=== PATIENT | female | born 1975 | race Caucasian/White ===

== ENCOUNTER → 2017-07-09 14:06 | Outpatient (CLI) | payer OTHER, SELFPAY ==
[2017-07-16 13:52] LABS: HPV Reflexed? NOT INDICATED
== END ==
PROVIDERS: Visit Provider Obstetrics & Gynecology
DX: Z12.4 Encounter for screening for malignant neoplasm of cervix (principal)
CPT/HCPCS: 88175; G0145

== ENCOUNTER → 2017-09-27 08:40 | Outpatient (CLI) | payer OTHER, SELFPAY ==
--- NOTE | 2017-09-27 08:45 | BI_ITS ---
MAMMOGRAPHY - BILATERAL SCREENING REASON FOR EXAM: Female, 42 years old. Routine annual screening examination. PERTINENT HISTORY: Mother with breast cancer. Aunt with breast cancer. Prior right ultrasound-guided breast biopsy. TECHNIQUE: Digital bilateral breast malina (3D mammographic acquisition) in the CC and MLO projections. 2-D mediolateral oblique (MLO) and craniocaudad (CC) views of both breasts were obtained. CAD: Full Field Digital Mammography with Computer Added Detection was performed. COMPARISON: Comparison is made with prior study dated August 31, 2016 and August 12, 2015. FINDINGS: Breast Composition: The breasts are heterogeneously dense, which may obscure small masses. There are no dominant masses or suspicious calcifications. A tissue clip marker is once again seen in a nodular density measuring 1.2 cm in the axillary region of the right breast. No other significant abnormalities are identified. There has been no significant change since the prior study. BI/SCREENING MAMM (CAD), BILAT IMPRESSION: Stable bilateral screening mammogram. Yearly follow-up mammogram recommended. (A) ASSESSMENT CATEGORY: BIRADS Category 2: Benign. A letter regarding these results will be sent to the patient by the facility within 30 days. Approximately 10% of breast cancers are not detected by mammography. A normal mammogram should not delay biopsy of a clinically suspicious abnormality. [id number] Electronically Signed: Jesus Alberto Austin MD at 9:51 EDT Tel [phone], Service support ,
== END ==
PROVIDERS: Visit Provider Obstetrics & Gynecology
DX: Z12.31 Encounter for screening mammogram for malignant neoplasm of breast (principal)
CPT/HCPCS: 77063; 77067

== ENCOUNTER → 2018-07-12 14:04 | Outpatient (CLI) | payer OTHER, SELFPAY ==
[2018-07-15 13:32] LABS: HPV Reflexed? NOT INDICATED
== END ==
PROVIDERS: Visit Provider Obstetrics & Gynecology
DX: Z12.4 Encounter for screening for malignant neoplasm of cervix (principal)
CPT/HCPCS: 88175; G0145

== ENCOUNTER → 2018-10-10 14:31 | Outpatient (CLI) | payer OTHER, SELFPAY ==
--- NOTE | 2018-10-10 14:34 | BI_ITS ---
MAMMOGRAPHY - BILATERAL SCREENING 3-D TOMOSYNTHESIS REASON FOR EXAM: Female, 43 years old. Bilateral Screening 3-D tomosynthesis PERTINENT HISTORY: Mother with breast cancer.. TECHNIQUE: 2-D mammograms and 3-D Tomosynthesis of the breast (s) were performed. CAD was performed. COMPARISON: None. FINDINGS: The breast composition is heterogeneously dense that can obscure small breast masses. Scattered benign calcifications are seen. No dense spiculated masses or suspicious microcalcifications are identified. No architectural distortion is identified. There is no skin thickening or retraction. There has been no significant change since the prior study. BI/SCREEN MAMM (CAD) W/CICI BILAT IMPRESSION: No mammographic signs of malignancy. Routine yearly mammograms recommended. ASSESSMENT CATEGORY: BIRADS Category 2: Benign. A letter regarding these results will be sent to the patient by the facility within 30 days. FOLLOW UP RECOMMENDATION: Yearly follow up mammogram recommended. (A) Approximately 10% of breast cancers are not detected by mammography. A normal mammogram should not delay biopsy of a clinically suspicious abnormality. Electronically Signed: Marek Cavanaugh MD at 15:30 EDT , Service support ,
== END ==
PROVIDERS: Referring Provider Obstetrics & Gynecology; Visit Provider Obstetrics & Gynecology
DX: Z12.31 Encounter for screening mammogram for malignant neoplasm of breast (principal)
CPT/HCPCS: 77063; 77067

== ENCOUNTER → 2019-05-08 14:50 | Outpatient (CLI) | payer OTHER, SELFPAY ==
[2019-05-08 16:47] LABS: Thyroid Stim Hormone (TSH) 0.99 uIU/mL (0.358-3.74)
[2019-05-12 16:41] LABS: HPV Reflexed? NOT INDICATED
== END ==
PROVIDERS: Visit Provider Obstetrics & Gynecology
DX: Z12.4 Encounter for screening for malignant neoplasm of cervix (principal); N92.6 Irregular menstruation, unspecified
CPT/HCPCS: 36415; 84443; 88175; G0145

== ENCOUNTER → 2019-11-06 10:51 | Outpatient (CLI) | payer OTHER, SELFPAY ==
--- NOTE | 2019-11-06 10:55 | BI_ITS ---
MAMMOGRAPHY - BILATERAL SCREENING 3-D TOMOSYNTHESIS REASON FOR EXAM: Female, 44 years old. Routine screening PERTINENT HISTORY: FM HX MOTHER 41, PAT AUNT 30''S, PT TOOK PROGESTERONE FOR 10 DAYS IN MAY 2019 TO REGULATE CYCLE, RT U/S BX 08/2015 IN [facility] OFFICE, BILAT MOLES REMOVED. TECHNIQUE: 2-D mammograms and 3-D Tomosynthesis of the breast (s) were performed. CAD was performed. COMPARISON: 10/10/2018 FINDINGS: The breast composition is heterogeneously dense that can obscure small breast masses. Scattered benign calcifications are seen. No dense spiculated masses or suspicious microcalcifications are identified. No architectural distortion is identified. There is no skin thickening or retraction. There has been no significant change since the prior study. BI/SCREEN MAMM (CAD) W/CICI BILAT IMPRESSION: No mammographic signs of malignancy. Routine yearly mammograms recommended. ASSESSMENT CATEGORY: BIRADS Category 2: Benign. A letter regarding these results will be sent to the patient by the facility within 30 days. FOLLOW UP RECOMMENDATION: Yearly follow up mammogram recommended. (A) Approximately 10% of breast cancers are not detected by mammography. A normal mammogram should not delay biopsy of a clinically suspicious abnormality. Electronically Signed: Marek Cavanaugh MD at 12:17 EDT , Service support ,
== END ==
PROVIDERS: Referring Provider Obstetrics & Gynecology; Visit Provider Obstetrics & Gynecology
DX: Z12.31 Encounter for screening mammogram for malignant neoplasm of breast (principal)
CPT/HCPCS: 77063; 77067

== ENCOUNTER → 2020-09-02 11:11 | Outpatient (CLI) | payer OTHER, SELFPAY ==
[2020-09-02 10:02] VITALS: BMI 20.6
[2020-09-02 11:47] LABS: Absolute Lymphocyte Count 1.53 X10^3/uL (0.83-4.51); Absolute Neutrophil Count 2.4 X10^3/uL (2.0-7.7); Basophil# 0.04 X10^3/uL; Basophil% 0.9 % (0-1); Eosinophil# 0.18 X10^3/uL; Eosinophils% 3.9 % (0-5); Hematocrit 41.9 % (37-47); Hemoglobin 13.3 g/dL (12.0-15.0); Lymphocyte # 1.53 X10^3/ul (0.83-4.51); Lymphocyte % 33.3 % (19-41); Mean Corp Hgb Conc 31.7 g/dL (32-36); Mean Corpuscular Hgb 30.5 pg (27.0-32.0); Mean Corpuscular Volume 96.1 fL (81-99); Monocyte# 0.44 X10^3/uL; Monocyte% 9.6 % (0-10); NRBC Flagged by Analyzer 0 % (0-5); Neutrophil # 2.39 X10^3/uL (2.7-7.7); Neutrophil % 52.1 % (47-70); Platelet Count 183 K/mm3 (150-450); RBC Distribution Width CV 11.7 % (11.6-14.6); RBC Distribution Width SD 41.3 fl (35.1-43.9); Red Blood Count 4.36 M/mm3 (4.2-5.4); White Blood Count 4.6 K/mm3 (4.4-11.0)
[2020-09-02 12:06] LABS: Vitamin D,25 Hydroxy 54.6 ng/mL
[2020-09-02 12:12] LABS: Cholesterol 181 mg/dL (200); Glucose 76 mg/dL (74-106); High Density Lipoprotein 83 mg/dL; Thyroid Stim Hormone (TSH) 1.28 uIU/mL (0.358-3.74); Triglycerides 78 mg/dL; Very Low Density Lipoprotein 16 mg/dL (5-40)
== END ==
PROVIDERS: Referring Provider Obstetrics & Gynecology; Visit Provider Obstetrics & Gynecology
DX: Z01.419 Encounter for gynecological examination (general) (routine) without abnormal findings (principal); N93.9 Abnormal uterine and vaginal bleeding, unspecified
CPT/HCPCS: 36415; 80061; 82306; 82947; 84443; 85025

== ENCOUNTER → 2020-11-11 10:20 | Outpatient (CLI) | payer OTHER, SELFPAY ==
[2020-09-02 10:02] VITALS: BMI 20.6
--- NOTE | 2020-11-11 10:21 | BI_ITS ---
MAMMOGRAPHY - BILATERAL SCREENING REASON FOR EXAM: Female, 45 years old. Routine annual screening examination. PERTINENT HISTORY: Mother with breast cancer. Aunt with breast cancer. History of prior right ultrasound-guided breast biopsy. TECHNIQUE: Digital bilateral breast cici (3D mammographic acquisition) in the CC and MLO projections. 2-D mediolateral oblique (MLO) and craniocaudad (CC) views of both breasts were obtained. CAD: Full Field Digital Mammography with Computer Added Detection was performed. COMPARISON: Comparison is made with prior examination dated 11/06/2019 and 10/10/2018. FINDINGS: Breast Composition: The breasts are extremely dense, which lowers the sensitivity of mammography. There are no dominant masses or suspicious calcifications. Once again, a tissue clip marker is seen within a 1.0 cm nodule in the deep upper aspect of the right breast. No other significant abnormalities are identified. There has been no significant change since the prior study. BI/SCRN MAMM (CAD)W/CICI BILAT IMPRESSION: Stable bilateral screening mammogram. Yearly follow-up mammogram recommended. (A) ASSESSMENT CATEGORY: BIRADS Category 2: Benign. A letter regarding these results will be sent to the patient by the facility within 30 days. Approximately 10% of breast cancers are not detected by mammography. A normal mammogram should not delay biopsy of a clinically suspicious abnormality. [id number] Electronically Signed: Jesus Alberto Austin MD at 11:01 EDT , Service support ,
== END ==
PROVIDERS: Referring Provider Obstetrics & Gynecology; Visit Provider Obstetrics & Gynecology
DX: Z12.31 Encounter for screening mammogram for malignant neoplasm of breast (principal)
CPT/HCPCS: 77063; 77067

== ENCOUNTER → 2021-09-17 | Outpatient (CLI) | payer OTHER, SELFPAY ==
--- NOTE | 2021-09-17 12:27 | US_ITS ---
EXAM: US PELVIS TRANSABDOMINAL AND TRANSVAGINAL, COMPLETE CLINICAL INDICATION: aub TECHNIQUE: Transabdominal and transvaginal pelvic ultrasound was performed with grayscale and color Doppler imaging. Transvaginal imaging was used for better evaluation of the endometrium and adnexa. This report was created using [employer] technology. COMPARISON: None. FINDINGS: UTERUS/CERVIX: Uterus measures 7.7 x 4.3 x 4.9 cm. The endometrium measures 2 mm. There is an isoechoic mass in the uterus and measures 1.6 x 1.1 x 1 5 cm compatible with a fibroid. Anteverted. RIGHT OVARY: The right ovary measures 2.0 x 1.7 x 1.8 cm. Blood flow is present in the right ovary. LEFT OVARY: The left ovary measures 1.8 x 2.0 x 1.1 cm. Blood flow is present in the left ovary. FREE FLUID: None. BLADDER: Unremarkable as visualized. Wall is normal thickness for degree of distention. US/Transvaginal Non- IMPRESSION: Uterine fibroid. No other abnormalities are identified. Electronically Signed: Kyle Sauceda MD at 2:27 EDT ,
--- NOTE | 2021-09-17 12:27 | US_ITS ---
EXAM: US PELVIS TRANSABDOMINAL AND TRANSVAGINAL, COMPLETE CLINICAL INDICATION: aub TECHNIQUE: Transabdominal and transvaginal pelvic ultrasound was performed with grayscale and color Doppler imaging. Transvaginal imaging was used for better evaluation of the endometrium and adnexa. This report was created using [employer] technology. COMPARISON: None. FINDINGS: UTERUS/CERVIX: Uterus measures 7.7 x 4.3 x 4.9 cm. The endometrium measures 2 mm. There is an isoechoic mass in the uterus and measures 1.6 x 1.1 x 1 5 cm compatible with a fibroid. Anteverted. RIGHT OVARY: The right ovary measures 2.0 x 1.7 x 1.8 cm. Blood flow is present in the right ovary. LEFT OVARY: The left ovary measures 1.8 x 2.0 x 1.1 cm. Blood flow is present in the left ovary. FREE FLUID: None. BLADDER: Unremarkable as visualized. Wall is normal thickness for degree of distention. US/Pelvic (Non ) IMPRESSION: Uterine fibroid. No other abnormalities are identified. Electronically Signed: Kyle Sauceda MD at 2:27 EDT ,
== END | disposition home or self-care (01) ==
LOC: OPUS 12:26
PROVIDERS: Visit Provider Obstetrics & Gynecology
DX: N93.9 Abnormal uterine and vaginal bleeding, unspecified (principal)
CPT/HCPCS: 76830; 76856

== ENCOUNTER → 2021-11-17 | Outpatient (CLI) | payer OTHER, SELFPAY ==
--- NOTE | 2021-11-17 10:34 | BI_ITS ---
MAMMOGRAPHY - BILATERAL SCREENING REASON FOR EXAM: Female, 46 years old. Routine annual screening examination. PERTINENT HISTORY: Mother with breast cancer. Aunt with breast cancer. Prior right ultrasound-guided breast biopsy. TECHNIQUE: Digital bilateral breast cici (3D mammographic acquisition) in the CC and MLO projections. 2-D mediolateral oblique (MLO) and craniocaudad (CC) views of both breasts were obtained. CAD: Full Field Digital Mammography with Computer Added Detection was performed. COMPARISON: Comparison is made with prior study 11/11/2020 and 11/06/2019. FINDINGS: Breast Composition: The breasts are extremely dense, which lowers the sensitivity of mammography. There are no dominant masses or suspicious calcifications. A tissue clip marker is seen in the axillary region of the right breast. The clip is within the 1 cm nodule. No other significant abnormalities are identified. There has been no significant change since the prior study. BI/SCRN MAMM (CAD)W/CICI BILAT IMPRESSION: Stable bilateral screening mammogram. Yearly follow-up mammogram recommended. (A) ASSESSMENT CATEGORY: BIRADS Category 2: Benign. A letter regarding these results will be sent to the patient by the facility within 30 days. Approximately 10% of breast cancers are not detected by mammography. A normal mammogram should not delay biopsy of a clinically suspicious abnormality. [id number] Electronically Signed: Jesus Alberto Austin MD at 11:15 EDT ,
== END | disposition home or self-care (01) ==
LOC: OPBI 10:33
PROVIDERS: Visit Provider Obstetrics & Gynecology
DX: Z12.31 Encounter for screening mammogram for malignant neoplasm of breast (principal); Z80.3 Family history of malignant neoplasm of breast
CPT/HCPCS: 77063; 77067

== ENCOUNTER → 2022-09-14 | Outpatient (CLI) | payer OTHER, SELFPAY ==
[2022-09-17 16:09] LABS: HPV APTIMA, High Risk Negative (Negative)
== END | disposition home or self-care (01) ==
LOC: LABSPEC 14:05
PROVIDERS: Referring Provider Obstetrics & Gynecology; Visit Provider Obstetrics & Gynecology
DX: Z12.4 Encounter for screening for malignant neoplasm of cervix (principal)
CPT/HCPCS: 87624; 88175; G0145

== ENCOUNTER → 2022-11-30 | Outpatient (CLI) | payer OTHER, SELFPAY ==
--- NOTE | 2022-11-30 09:55 | BI_ITS ---
MAMMOGRAPHY - BILATERAL SCREENING REASON FOR EXAM: Female, 47 years old. Routine annual screening examination. PERTINENT HISTORY: Mother with breast cancer. Aunt with breast cancer. Prior right ultrasound-guided breast biopsy. TECHNIQUE: Digital bilateral breast cici (3D mammographic acquisition) in the CC and MLO projections. 2-D mediolateral oblique (MLO) and craniocaudad (CC) views of both breasts were obtained. CAD: Full Field Digital Mammography with Computer Added Detection was performed. COMPARISON: Comparison is made with prior study November 17, 2021 and November 11, 2020. FINDINGS: Breast Composition: The breasts are extremely dense, which lowers the sensitivity of mammography. There are no dominant masses or suspicious calcifications. A tissue clip marker is seen within the tiny nodular density in the axillary region of the right breast. No other significant abnormalities are identified. There has been no significant change since the prior study. BI/SCRN MAMM (CAD)W/CICI BILAT IMPRESSION: Stable bilateral screening mammogram. Yearly follow-up mammogram recommended. (A) ASSESSMENT CATEGORY: BIRADS Category 2: Benign. A letter regarding these results will be sent to the patient by the facility within 30 days. Approximately 10% of breast cancers are not detected by mammography. A normal mammogram should not delay biopsy of a clinically suspicious abnormality. [id number] Electronically Signed: Jesus Alberto Austin MD at 10:46 EDT ,
== END | disposition home or self-care (01) ==
LOC: OPBI 09:53
PROVIDERS: Referring Provider Obstetrics & Gynecology; Visit Provider Obstetrics & Gynecology
DX: Z12.31 Encounter for screening mammogram for malignant neoplasm of breast (principal)
CPT/HCPCS: 77063; 77067

== ENCOUNTER → 2023-12-06 | Outpatient (CLI) | payer OTHER, SELFPAY ==
--- NOTE | 2023-12-06 13:36 | BI_ITS ---
MAMMOGRAPHY - BILATERAL SCREENING REASON FOR EXAM: Female, 48 years old. Routine annual screening examination. PERTINENT HISTORY: Mother with breast cancer. Aunt with breast cancer. Prior right ultrasound-guided breast biopsy. TECHNIQUE: Digital bilateral breast cici (3D mammographic acquisition) in the CC and MLO projections. 2-D mediolateral oblique (MLO) and craniocaudad (CC) views of both breasts were obtained. CAD: Full Field Digital Mammography with Computer Added Detection was performed. COMPARISON: Haq is made with prior study November 30, 2022 and November 17, 2021. FINDINGS: Breast Composition: The breasts are extremely dense, which lowers the sensitivity of mammography. There are no dominant masses or suspicious calcifications. A tissue clip marker is seen in the deep upper lateral aspect of the right breast. No other significant abnormalities are identified. There has been no significant change since the prior study. BI/SCRN MAMM (CAD)W/CICI BILAT IMPRESSION: Stable bilateral screening mammogram. Yearly follow-up mammogram recommended. (A) ASSESSMENT CATEGORY: BIRADS Category 2: Benign. A letter regarding these results will be sent to the patient by the facility within 30 days. Approximately 10% of breast cancers are not detected by mammography. A normal mammogram should not delay biopsy of a clinically suspicious abnormality. [id number] Electronically Signed: Jesus Alberto Austin MD at 14:25 EDT ,
== END | disposition home or self-care (01) ==
LOC: OPBI 13:36
PROVIDERS: Referring Provider Obstetrics & Gynecology; Visit Provider Obstetrics & Gynecology
DX: Z12.31 Encounter for screening mammogram for malignant neoplasm of breast (principal); Z80.3 Family history of malignant neoplasm of breast
CPT/HCPCS: 77063; 77067

== ENCOUNTER → 2024-12-11 | Outpatient (CLI) | payer OTHER, SELFPAY ==
--- NOTE | 2024-12-11 10:30 | BI_ITS ---
EXAM: SCRN MAMM (CAD)W/CICI BILAT DATE: 12/11/2024 CLINICAL HISTORY: F, Age 49 y/o , SCREENING FOR BREAST CANCER Mother with breast cancer. Aunt with breast cancer. TECHNIQUE: Procedure Code: [id number] Modality: MG Procedure: SCRN MAMM (CAD)W/CICI BILAT. Prior right ultrasound-guided breast biopsy. COMPARISON: Prior exam(s) dated December 06, 2023.. FINDINGS: TISSUE DENSITY: The breasts are extremely dense, which lowers the sensitivity of mammography. Bilateral Breast Mammographic Findings: No significant masses, calcifications or other abnormalities are identified.. A tissue clip marker is once again seen in the deep upper lateral aspect of the right breast. No suspicious masses, areas of developing architectural distortion, or suspicious calcifications. There has been no significant interval change. BI/SCRN MAMM (CAD)W/CICI BILAT IMPRESSION: OVERALL FINAL ASSESSMENT BI-RADS 2: BENIGN RECOMMENDATION: Routine annual follow-up in 1 Year Additional Recommendation none A letter with findings and recommendations will be mailed to the patient. Reading Location: [place] [id number]
[2024-12-11 11:13] LABS: Hematocrit 44.8 % (37-47); Hemoglobin 14.8 g/dL (12.0-15.0); Immature Granulocytes Count 0.010 X10^3/uL (0.0-0.0); Mean Corp Hgb Conc 33.0 g/dL (32-36); Mean Corpuscular Volume 93.5 fL (81-99); Mean Platelet Vol. 9.7 fl (6.2-12.0); NRBC Flagged by Analyzer 0 % (0-5); Platelet Count 239 K/mm3 (150-450); RBC Distribution Width CV 11.9 % (11.6-14.6); RBC Distribution Width SD 41.4 fl (35.1-43.9); Red Blood Count 4.79 M/mm3 (4.2-5.4); White Blood Count 5.7 K/mm3 (4.4-11.0)
--- OUTSIDE RECORDS SUMMARY | 2024-12-11 11:40 | XMS RPT_ITS | CCD ---
Author Organization [facility] Care Team Providers Care Television Specialist Name Role Phone Furness, Lincoln T Unavailable Unavailable Furness, Lincoln T Unavailable Unavailable Furness, Lincoln T Unavailable Unavailable Care Physician, No Primary Primary Care Provider Unavailable Care Physician, No Primary Referring Provider Un available Dr. Rena Ortega Attending Provider Care Physician, No Primary Primary Care Provider Unavailable Care Physician, No Primary Referring Provider Un available Dr. Rean Ortega Attending Provider SYSTEM, PROVIDER NOT IN Primary Care Unavaila TOM Faustin Referring Unavailab le Care Physician, No Primary Primary Care Provider Unavailable Care Physician, No Primary Referring Provider Un available Dr. Rena Ortega MD Attending Provider Rena Ortega Attending Unavailable Care Physician, No Primary Referring Unava ilable Care Physician, No Primary Primary Care Unava ilable Care Physician, No Primary Primary Care Unava ilable Duyen Richardson Attending Unavailable Care Physician, No Primary Primary Care Unava ilable Rena Ortega Referring Unavailable Rena Ortega Attending Unavailable Medications Current Medications Medication Drug Class(es) Dates Sig (Normalized) Sig (Original) acetaminophen 300 mg / butalbital 50 mg / caffeine 40 mg oral capsule (9 sources) Barbiturate, Central Nervous System Stimulant, Methylxanthine Start: 09-02-2020 End: 10-12-2023 Butalbital-Acetamin ophen-Caff (Fioricet) 50-300-40 mg capsule Active 1 NMA PO Q8H as needed for pain October 12, 2023 2:43pm calcium carbonate 500 mg chewable tablet (1 source) Start: 10-12-2023 take 1 tablet by mouth twice daily Calcium Carbonate 200 mg calcium (500 mg) tablet,chewable Active 200 mg PO TWICE A DAY October 12, 2023 12:00am Multivitamin tablet (1 source) Start: 10-12-2023 Multivitamin tablet Active 1 {tbl} PO DAILY October 12, 2023 12:00am spironolactone 50 mg oral tablet (3 sources) Aldosterone Antagonist Start: 09-14-2022 take 1 tablet by mouth once daily Spironolactone 50 mg tablet Active 50 mg PO DAILY September 14, 2022 12:00am Completed/Discontinued Medications Medication Drug Class(es) Dates Sig (Normalized) Sig (Original) medroxyPROGESTERone acetate 10 mg oral tablet (8 sources) Progestin Start: 1 End: 3 take 1 tablet by mouth once daily Medroxyprogesterone (Provera) 10 mg tablet Discontinued 10 mg PO daily 10 9 September 11, 2021 8:38am September 14, 2022 10:20am Problems Problem Classification Problem Date Documented Da te Episodic/Chronic Allergic reactions (2 sources) Other skin changes due to chronic exposure to nonionizing radiation; Translations: [Other skin changes due to chronic exposure to nonionizing radiation] Onset: 05-07-2023 Episodic Headache; including migraine (4 sources) Migraine; Translations: [Migraine, unspecified, not intractable, without status migrainosus] 09-02-2020 Chronic Comment on above: well controlled. Headache; including migraine (7 sources) Headache; Translations: [Headache] Episodic Comment on above: fioricet PRN, origin ally prescribed by Vikram. #20 per year. Menopausal disorders (8 sources) Menopausal syndrome; Translations: [Menopausal and female climacteric states] Chronic Comment on above: discussed options, r ruddyiewed relizen Other female genital disorders (4 sources) Abnormal uterine bleeding; Translations: [Abnormal uterine and vaginal bleeding, unspecified] 09-14-2022 Chronic Comment on above: repat US, previous f ibroid seen. discussed medication suppression possible. provera cyclic current. Other female genital disorders (1 source) Abnormal uterine and vaginal bleeding, unspecified; Translations: [Unspecified disorders of menstruation and other abnormal bleeding from female genital tract] Chronic Other screening for suspected conditions (not mental disorders or infectious disease) (2 sources) Encounter for screening mammogram for malignant neoplasm of breast; Translations: [Encounter for screening mammogram for malignant neoplasm of breast] Onset: 10-13-2024 Episodic Other skin disorders (2 sources) Acne vulgaris; Translations: [Acne vulgaris] Onset: 05-07-2023 Episodic Unclassified (1 source) Encounter for screening for malignant neoplasm of colon Unclassified (2 sources) Z12.11 - Encounter for screening for malignant neoplasm of colon Results Test Name Value Interpretation Reference Range Facility Cdl Program Coordinator Office Visit Reporton 10-13-2024 Cdl Program Coordinator Office Visit Report [facility] [address], [address] [place] [address] OFFICE VISIT Date of Service: 10/13/24 MR#: [id number] Acct: [id number] Name: DION CURTIS Rep #: [id number] : 1975 Provider: Dr. 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 Is patient in pain?: No Allergies No Known Allergies Allergy (Verified 10/13/24 08:26) Medications ???Medication ???Instructions ???Recorded ???Confirmed ???Type spironolactone 50 mg tablet 50 mg PO DAILY 09/14/22 10/13/24 H istory butalbital-acetaminoph en-caffeine 1 cap PO Q8H PRN pain #20 caps 10/13/24 Rx 50 mg-300 mg-40 mg capsule (Fioricet) calcium carbonate 200 mg PO BID 10/12/23 10/13/24 Hi story multivitamin 1 tab PO DAILY 10/12/23 10/13/24 H istory Is last menstrual period known: No Post menopausal: No Patient : No : No PFSH Medical History Migraine headache Abnormal Pap smear of cervix Surgical History H/O breast biopsy [place] teeth extracted Family History Mother Breast cancer, Onset Age: 41 Diabetes Aunt Breast cancer, Onset Age: 40 Social History number of children: 2 Smoking Status: Never smoker alcohol intake: never substance use type: does not use caffeine: No what type of physical activity do you participate in: walking frequency: daily seatbelt use: always do you feel safe at home: Yes additional social history: [employer] 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 Date Name GA/Weeks Outcome Route Bth Weight Gen Labor Lgth Anesthesia Del Locatn Provider FOB Unknown 2002 Mary 40 live - full term 7lbs 6oz Female [facility] Vikram Martiny Unknown 2005 Jack 40 live - full term 7lbs 8oz Male [facility] Vikram Artis HPI Encounter for routine gynecological examination Details: DION CURTIS is a 49 year old who presents for annual exam. Last PAP: 09/14/2022 - normal History of abnormal PAP: Last mammogram: 12/06/2023 - normal History of abnormal mammogram: Colon cancer screening: has not had done Other preventative health care screenings: Has not seen PCP for about 5 years Female Reproductive History Questions: metorrhagia: No, sexually active: Yes, dyspareunia: No and PCB: No Menopausal Symptoms: Yes hot flashes, No night sweats, No weight change, No mood changes, No difficulty concentrating, No sleep problems and No change in libido ROS Const Constitutional: Reports as per HPI; Denies fatigue, increased appetite, poor appetite, night sweats, weight gain or weight loss Cardio Card: Denies chest pain Resp Resp: Denies cough or dyspnea GI GI: Reports as per HPI; Denies abdominal pain, bloating, constipation, nausea or vomiting : Reports as per HPI, hot flashes, urinary incontinence (stress) and other; Denies difficulty voiding, dysuria, hematuria, nipple discharge, pelvic pain, prolapse symptoms, urinary frequency, urinary urgency, vaginal discharge, vaginal dryness, vaginal odor or vaginal pruritus Skin Skin/Breast: Denies changing lesions, breast mass, breast pain, breast skin changes or nipple discharge Psych Psych: Denies anxiety, change in libido, depression or difficulty concentrating Exam Const General: cooperative, healthy appearing, comfortable, no acute distress, well developed and well groomed [facility] Head: normal to inspection and normocephalic Ears: hearing grossly normal bilaterally and external ears normal Nose: external nose normal Face and sinus: normal facial exam Neck Neck: normal visual inspection, full ROM and no lymphadenopathy Thyroid: thyroid normal Chest Chest palpation inspection: normal inspection of the chest Breast inspection: normal inspection of the breasts and normal inspection of the axillae Breast palpation: normal palpation of the breasts, normal palpation of the axillae and no axillary lymphadenopathy Other: right breast [place] lait spot Resp Effort Inspection: normal respiratory effort GI Inspection: normal to inspection and non-distended Palpation: soft, no hepatosplenomegaly and no guarding General: bladder nor (more content not included)... Normal [facility] Cervical or vagninal specime n microscopic examination by cytology stain (reported asOrdered By: Rena Ortega on 09-14-2022 Cytology report Cyto stain Doc (Cvx/Vag) Comment . [facility] Comment on above: The Pap smear is a s creening test designed to aid in thedetection of premalignant and malignant conditions of theuterine cervix. It is not a diagnostic procedure andshould not be used as the sole means of detecting cervicalcancer. Both false-positive and false-negative reports dooccur. Detection in cervical specim en of any of human papilloma virus (HPV) 16, 18, 31, 33,Ordered By: Rena Ortega on 09-14-2022 HPV 16+18+31+33+35+39+45+5 1+52+56+58+59+66+68 DNA Probe+sig amp Ql (Cvx) Negative Negative [facility] Comment on above: This nucleic acid am plification test detects fourteen high- risk HPV types (16,18,31,33,35,39,45,51,52,56,58,59,66,68)without differentiation. Laboratory - CytologyOrdered By: Rena Ortega on 09-14-2022 Manufacturing Team Leader Cyto stain Nom (Cvx/Vag) [ID] Comment . [facility] Comment on above: Vonda Cuello, [employer] hnologist Laboratory - Miscellaneous t estsOrdered By: Rena Ortega on 09-14-2022 Service comment (Unsp spec) [Interp] Comment . [facility] Comment on above: This liquid based Th inPrep(R) pap test was screened withthe use of an image guided system. Service comment (Unsp spec) [Interp] . . [facility] Liquid-based cerv Pap + CT/G C by ANNA w reflex to high-risk HPV for ASCUSOrdered By: Rena Ortega on 09-14-2022 Cytology report Cyto stain.thin prep Doc (Cvx/Vag) Comment . [facility] Comment on above: Criteria not met, HP V Genotype not performed.Performed at: [facility] [employer] [id number] Director: Mckenna Rankin MD, Phone: [phone] at: [facility] [id number] Director: Aixa Booth MD, Phone: [phone] at: [facility] [id number] Director: Aixa Booth MD, Phone: [phone] No Panel InformationOrdered By: Rena Ortega on 09-14-2022 Pathology report final diagnosis Narrative Comment . [facility] Comment on above: NEGATIVE FOR INTRAEP ITHELIAL LESION OR MALIGNANCY. ECG COMPLETEon 10-03-2018 ECG COMPLETE NAME : GIL CURTIS PID : [id number] : 1975 Gender : Female Race : ORD : [id number] Procedure Date : Oct 03 2018 09:10:52 Edit Date : Oct 03 2018 10:28:47 Diagnosis:NORMAL SINUS RHYTHM Confirmed by HAL BROOKE M.D. ([id number]) on 10/03/2018 10:28:45 AM Ventricular Rate : 61 BPM Atrial Rate : 61 BPM P-R Interval : 118 ms QRS Duration : 92 ms Q-T Interval : 410 ms QTC Calculation(Bazett) : 412 ms P [place] : 74 degrees R [place] : 55 degrees T [place] : 48 degrees Test Reason : Location : 570 : RPEDS Overread By : HAL BROOKE M.D. Edited By : HAL BROOKE M.D. Referred By : HAL BROOKE Acquired by : Rosemary JOHNSON [facility] Vital Signs Date Time Vital Sign Value Performing Clinician Lizeth piersonradha 10-13-2024 08:32-0400 Body height 157.48 cm No Primary Care Physician [facility] 10-13-2024 08:26-0400 Body mass index (BMI) [Ratio] 20.3 kg/m2 No Primary Care Physician [facility] 10-13-2024 08:26-0400 Body weight 50.4 kg No Primary Care Physician [facility] 10-13-2024 08:26-0400 Diastolic blood pressure 63 mm[Hg] No Primary Care Physician [facility] 10-13-2024 08:26-0400 Systolic blood pressure 103 mm[Hg] No Primary Care Physician [facility] 09-14-2022 10:15-0400 Body height 157.48 cm No Primary Care Physician [facility] 09-14-2022 10:15-0400 Body mass index (BMI) [Ratio] 19.9 kg/m2 No Primary Care Physician [facility] 09-14-2022 10:15-0400 Body weight 49.49 kg No Primary Care Physician [facility] 09-14-2022 10:15-0400 Diastolic blood pressure 64 mm[Hg] No Primary Care Physician [facility] 09-14-2022 10:15-0400 Systolic blood pressure 107 mm[Hg] No Primary Care Physician [facility] 09-11-2021 08:15-0400 Body mass index (BMI) [Ratio] 21.2 kg/m2 No Primary Care Physician [facility] Work Phone: 09-11-2021 08:15-0400 Body weight 52.61 kg No Primary Care Physician [facility] Work Phone: 09-11-2021 08:15-0400 Diastolic blood pressure 60 mm[Hg] No Primary Care Physician [facility] Work Phone: 09-11-2021 08:15-0400 Systolic blood pressure 104 mm[Hg] No Primary Care Physician [facility] Work Phone: Encounters Encounter Date Encounter Type Care Provider Facility Start: 12-27-2024 ambulatory No Primary Car e Physician Facility:[facility] Start: 12-11-2024 ambulatory No Primary Car e Physician Facility:[facility] Start: 10-13-2024 End: 10-13-[address] Rena Ortega MD -[facility] Work Phone: Start: 10-13-2024 End: 10-13-[address] Rena Ortega MD [facility] Start: 10-13-2024 End: 10-13-2024 ambulatory No Primary Care Physician -[facility] Start: 05-07-2023 End: 05-11-2023 ambulatory PROVIDER NOT IN SYSTEM [facility] Start: 11-30-2022 End: 11-30-2022 ambulatory No Primary Care Physician [facility] Work Phone: Start: 11-30-2022 End: 11-30-2022 Patient encounter procedure No Primary Care Physician [facility]-Outpatient Breast Imaging Work Phone: Start: 09-14-2022 End: 09-14-2022 ambulatory No Primary Care Physician [facility] Work Phone: Start: 09-14-2022 End: 09-14-2022 Patient encounter procedure No Primary Care Physician [facility]-Laboratory, Specimen Work Phone: Start: 09-14-2022 End: 09-14-2022 Patient encounter procedure No Primary Care Physician [facility] Work Phone: Start: 09-17-2021 End: 09-17-2021 Patient encounter procedure No Primary Care Physician [facility] Ultrasound Start: 09-11-2021 End: 09-11-2021 Patient encounter procedure No Primary Care Physician [facility] Start: 07-12-2017 End: 07-13-2017 Ambulatory Lincoln Torres Facility:[facility] Procedures Date Procedure Procedure Detail Performing Clinician Start: 11-30-2022 Screening mammography N o Primary Care Physician Start: 09-17-2021 Pelvic echography No Pr imary Care Physician Start: 09-17-2021 Transvaginal echography No Primary Care Physician Plan of Treatment Date Care Activity Detail Author Start: 09-14-2022 Liquid based cervica l cytology screening [facility] MG Breast - bilateral Screening [facility] Work Phone: MG Breast - bilateral Screening [facility] MG Breast - bilateral Screening [facility] MG Breast - bilateral Screening [facility] Path report.final Dx Spec [facility] Payers Date Payer Category Payer Self-pay [id number] 2024 Private Health Insurance [id number] 2023 Unknown [id number] 2017 Unknown 2016 Unknown [id number] 1975 Unknown [id number] Unknown [id number] Unknown [id number] Unknown [id number] Social History Date Type Detail Facility Start: 09-11-2021 End: 09-14-2022 Tobacco smoking status NHIS Unknown if ever smoked [facility] Start: 1975 Sex Assigned At Female [facility] Start: 10-13-2024 Tobacco smoking stat us NHIS Never smoked tobacco (finding) [facility] Clinical Note 09-14-2022 Note Date & Type Note Facility 09-14-2022 Note [facility] Pap Smear Specimen Adequacy September 14, 2022 2:27pm Comment . Satisfactory for evaluation. No endocervical component is identified. Comment on above: Satisfactory for bernardino luation. No endocervical component is identified. Evaluation note Note Date & Type Note Facility Evaluation note Diagnosis Onset Date Abnormal uterine bleeding ac sobeida Climacteric acute Headache acute Encounter for routine gyneco logical examination noneactive [facility] Work Phone: Evaluation note Note Date & Type Note Facility Evaluation note Diagnosis Onset Date Climacteric acute Headache acute Encounter for routine gyneco logical examination noneactive [facility] Work Phone: Evaluation note Note Date & Type Note Facility Evaluation note Diagnosis Onset Date Resolution Climacteric acute October 13 8:14am Encounter for routine gynecological examination noneactive October 13, 2024 8:14am [facility] Work Phone: Hospital Discharge instructions Note Date & Type Note Facility Hospital Discharge instructions Ambulatory OrdersGeneral Surgery Location: None Selected [facility] Work Phone: Summary Purpose Family History No Family History Records Found Relationship Condition Age at Onset Recorded Date/T koki mother Malignant neoplasm of breast 41 Diabetes mellitus Unknown aunt Malignant neoplasm of breast 40 Advance Directives No Advanced Directives Records FoundNo Advanced Directives Records FoundNo Advanced Directives Records FoundNo Advanced Directives Records Found Chief Complaint and Reason for Visit Chief Complaint 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 Reason for Visit Abnormal uterine ble eding Climacteric Headache Encounter for routine gynecological examination Chief Complaint 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) Reason for Visit Climacteric Headache Encounter for routine gynecological examination Chief Complaint 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) SCREENING Reason for Visit Climacteric Headache Encounter for routine gynecological examination Chief Complaint Admit Date 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 Goals (unrecognized section and content) Goals may be documented in a n alternate sectionGoals may be documented in an alternate sectionGoals may be documented in an alternate sectionGoals may be documented in an alternate section Care Teams (unrecognized sec tion and content) Team Status: Active Member Role Status Dates No Primary Care Physician Family Provider Active No Primary Care Physician Primary Care Provider Active Team Status: Inactive Member Role Status Dates No Primary Care Physician Primary Care Provider, Refer ring Provider Active Dr. Rena Ortega MD Attending Provider Active Team Status: Inactive Member Role Status Dates No Primary Care Physician Primary Care Provider Active Dr. Rena Ortega MD Attending Provider, Referr ing Provider Active Team Status: Active Member Role/Relationship Status Dates No Primary Care Physician Family Provider Active No Primary Care Physician Primary Care Provider Active Team Status: Inactive Member Role/Relationship Status Dates No Primary Care Physician Primary Care Provider Active Start: October 13, 2024 End: October 13, 2024 No Primary Care Physician Referring Provider Active Start: October 13, 2024 End: October 13, 2024 Dr. Rena Ortega MD Attending Provider Active Start: October 13, 2024 End: October 13, 2024 FOR RECORDS PERTAINING TO PATIENTS WHO ARE OR HAVE BEEN ENROLLED IN A CHEMICAL DEPENDENCY/SUBSTANCEABUSE PROGRAM, SOME INFORMATION MAY BE OMITTED. This clinical summary was aggregated from multiple sources. Caution should be exercised in using it in the provision of clinical care. This summary normalizes information from multiple sources, and as a consequence, information in this document may materially change the coding, format and clinical context of patient data. In addition, data may be omitted in some cases. CLINICAL DECISIONS SHOULD BE BASED ON THE PRIMARY CLINICAL RECORDS. [employer] provides no warranty or guarantee of the accuracy or completeness of information in this document.
[2024-12-11 12:07] LABS: AST(SGOT) 24 U/L (<=31); Alanine Aminotransfer ALT/SGPT 14 U/L (<=34); Albumin, Serum 4.4 g/dL (3.5-5.0); Alkaline Phosphatase 125 U/L (35-104); Anion Gap 11 (5-15); BUN 18 mg/dL (4-19); BUN/Creat Ratio 24.3 RATIO (10-20); Calcium,Total 9.8 mg/dL (7.6-11.0); Carbon Dioxide 24.4 mmol/L (21.0-32.0); Chloride 103 mmol/L (98-108); Cholesterol 207 mg/dL (<=200); Globulin 3.5 g/dL (2.2-4.2); Glucose 87 mg/dL (70-99); Low Density Lipoprotein Calc. 98 mg/dL; Potassium 4.4 mmol/L (3.3-5.1); Triglycerides 50 mg/dL; Very Low Density Lipoprotein 10 mg/dL (5-40); Vitamin D,25 Hydroxy 69.3 ng/mL (30-100); cholesterol:hdl ratio screen 2.09
== END | disposition home or self-care (01) ==
PROVIDERS: Referring Provider Obstetrics & Gynecology; Visit Provider Obstetrics & Gynecology
DX: Z12.31 Encounter for screening mammogram for malignant neoplasm of breast (principal); Z80.3 Family history of malignant neoplasm of breast; Z00.00 Encounter for general adult medical examination without abnormal findings; N95.1 Menopausal and female climacteric states; Z13.1 Encounter for screening for diabetes mellitus; Z13.21 Encounter for screening for nutritional disorder; Z13.220 Encounter for screening for lipoid disorders; Z13.29 Encounter for screening for other suspected endocrine disorder
CPT/HCPCS: 36415; 77063; 77067; 80053; 80061; 82306; 83036; 84443; 85025

== ENCOUNTER 2024-12-27 08:17 | Day surgery (SDC) | payer OTHER, SELFPAY ==
[2024-12-27] VITALS (9 sets, daily range): BP systolic 79–97; BP diastolic 44–64; PULSE 66–76; RESP 12–16; TEMP 36.3–36.5; O2SAT 98–100; BMI 19.8
--- NOTE | 2024-12-27 08:23 | H&P.OPEN ---
[facility] - General General Date of Service: 12/27/24 HPI Narrative DION CURTIS, is a 49 F who presents for screening colonoscopy. Patient never had previous colonoscopy. Patient denies any family history of colon cancer. Patient has bowel movements daily denies any blood. Patient denies any chronic abdominal pain/nausea/vomiting/reflux. [facility] Medical History Post-menopausal Non-smoker Migraine headache Abnormal Pap smear of cervix Home Medications ?Medication ?Instructions ?Recorded ?Last Taken ?Type spironolactone 50 mg tablet 50 mg PO DAILY skin 09/14/22 12/25/24 History wsvvfagbgw-ragvuabujrwcf-ppohmwuq 1 cap PO Q8H PRN pain #20 caps 10/12/23 Unknown Rx 50 mg-300 mg-40 mg capsule (Fioricet) calcium carbonate 200 mg PO .qd 10/12/23 12/25/24 History multivitamin 1 tab PO DAILY 10/12/23 12/25/24 History Allergy/AdvReac Type Severity Reaction Status Date / Time No Known Allergies Allergy Verified 12/27/24 08:42 Family History Mother Breast cancer, Onset Age: 41 Diabetes Aunt Breast cancer, Onset Age: 40 Surgical History H/O breast biopsy [place] teeth extracted Social History number of children: 2 Smoking Status: Never smoker alcohol intake: never substance use type: does not use caffeine: No what type of physical activity do you participate in: walking frequency: daily seatbelt use: always do you feel safe at home: Yes additional social history: [employer]- [employer] 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 is 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 Past Medical/Surgical History Planned Operation Planned Operative Procedure(s): Colonoscopy - Open Access Previous Hospitalizations/Surgeries HX Hospitalizations: No Any Problems With Anesthesia: Yes (ponv) You/Your Family Experience Fever (Hyperthermia) With Anes: No Cholinesterase deficiency: No Cardiovascular Hx Hypertension: No Respiratory Hx Sleep Apnea: No Hx Respiratory Tract Infection/Cold (presently): No Do You Snore Loudly (louder than talking or can be heard): No Do You Often Feel Tired/ Fatigued/ Sleepy [place]ring Daytime?: No Has Anyone Observed You Stop Breathing During Sleep?: No Result (for STOP score): Negative Smoking Status: Never smoker Neurological Does patient have nerve stimulator: No Reproduction : No Allergies No Known Allergies Allergy (Verified 12/27/24 08:42) Discharge Is Pt Admitted From a Long Term, or a Retirement: No After D/C, Where Do you Plan to Go: Return Home Physical Exam Const alert, oriented x3 and no apparent distress HEENT normocephalic and head/scalp atraumatic Resp normal respiratory effort Cardio regular rate GI soft to palpation and non-tender; Negative for non-distended Palpation: Negative for guarding Extremity no clubbing, cyanosis or edema Skin no rashes or lesions noted Neuro CN's II-XII intact bilaterally Psych mental status grossly normal Assessment & Plan Assessment/Plan (1) Screening for colon cancer: Surgery Risks - Colonoscopy I discussed with the patient the risks of the procedure: Yes Risks Include but are not Limited To: Risks include but are not limited to: Bleeding, perforation requiring further surgery, inability to complete colonoscopy requiring barium enema.
[2024-12-27] MEDS: Lactated Ringers 1,000 ML 15 ML IV (08:30)
--- NOTE | 2024-12-27 09:10 | PCM.PRE.AN2 ---
ASA Classification* ASA Classification ASA Classification: 1 Assessment & Plan Anesthesia* Anesthesia Assessment Anesthesia Assessment: Discussed sedation and/or anesthesia options, risks, benefits, and alternatives with patient/parents/legal guardian/POA. Questions invited. The patient/parents/legal guardian/POA seems to understand and agrees to proceed with anesthesia plan. Reviewed the physical assessment, medical history, allergy history and patient home medications list prior to surgery/procedure/anesthetic and documented any changes. Performed airway and anesthesia risk assessments. Anesthesia Type Anesthesia Type: MAC History Source History Obtained from:: Patient and Chart Anesthesia Focused Assessment* Temperature: 97.7 F Pulse Rate: 74 Blood Pressure: 97/64 Respiratory Rate: 12 Pulse Ox: 100 Oxygen Delivery Method: Room Air Airway Assessment Mouth opens: >3 cm Mallampati Score: II Teeth Condition: Intact Neck Range of motion (ROM): Full ROM Labs Anesthesia Preop lab: CBC WBC, (4.4-11.0) 5.7 K/mm3 12/11/24, 10:53 RBC, (4.2-5.4) 4.79 M/mm3 12/11/24, 10:53 Hgb, (12.0-15.0) 14.8 g/dL 12/11/24, 10:53 Hct, (37-47) 44.8 % 12/11/24, 10:53 Plt Count, (150-450) 239 K/mm3 12/11/24, 10:53 CHEMISTRY Potassium, (3.3-5.1) 4.4 mmol/L 12/11/24, 10:53 Sodium, (133-145) 138 mmol/L 12/11/24, 10:53 BUN, (4-19) 18 mg/dL 12/11/24, 10:53 Creatinine, (0.70-1.20) 0.72 mg/dL 12/11/24, 10:53 Glucose, (70-99) 87 mg/dL 12/11/24, 10:53 TSH, (0.300-4.200) 1.260 uIU/mL 12/11/24, 10:53 COAG Pre-Assessment Diagnosis/Proposed Procedure Planned Operative Procedure(s): Colonoscopy - Open Access Anesthesia History 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 When Was Last Pacemaker Check QUESTION #4 FULL TEXT: You/Your Family Experience fever (hyperthermia) with Anesthesia Last Oral Intake Last Oral intake: Last Oral Intake NPO since 20:00 12/27/24 08:43 Meds taken in AM with sips of No 12/27/24 08:43 water? Meds patient instructed to take am of surgery PONV PONV - airfield services officer: PONV - airfield services officer Female Yes 12/21/24 12:47 HX of Motion Sickness Yes 12/21/24 12:47 HX of N/V After Surgery Yes 12/21/24 12:47 Non-Smoker Yes 12/21/24 12:47 Duration of Surgery greater No 12/21/24 12:47 than 60 minutes Number of Risk Factors 4 12/21/24 12:47 PONV Score Severe Risk 12/21/24 12:47 Height & Weight Height & Weight: Anesthesia: Height & Weight Height 5 ft 2 in 12/27/24 08:43 Weight: 49 kg 12/27/24 08:43 Body Mass Index (BMI) 19.8 12/27/24 08:43 Respiratory Assessment Respiratory Assessment - airfield services officer: Respiratory Tract Infection Hx - airfield services officer Hx Respiratory Tract Infection No 12/27/24 08:24 STOP Sleep Apnea STOP Sleep Apnea - airfield services officer: STOP Sleep Apnea - airfield services officer Hx Hypertension No 12/27/24 08:24 Hx Sleep Apnea No 12/27/24 08:24 CPAP BIPAP Do you snore loudly (louder No 12/27/24 08:24 than talking or can be heard Do you often feel tired/ No 12/27/24 08:24 fatigued/ sleepy during daytime? Has anyone observed you stop No 12/27/24 08:24 breathing during sleep? STOP Results Negative 12/27/24 08:24 QUESTION #5 FULL TEXT : Do you snore loudly (louder than talking or can be heard through closed doors)? 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 Specify any problems Hx of Preganancy in last 3 No 12/21/24 12:47 Months Nurse Filling Out Transfusion JZOLLINGE 12/21/24 12:47 & Questions: Date: 12/21/24 12/21/24 12:47 Time: 12:48 12/21/24 12:47 Patient unable to answer at this time (ie. confused, unrespo /Reproduction History /Reproductive History - airfield services officer: /Reproductive Hx- airfield services officer Hx Now No 12/27/24 08:24 Gestational Age (in weeks): EDC: Hx Hx Para Hx Section SAB No 12/21/24 12:47 Active Medications Active Medications: Current Medications Generic Name Dose Route Start Last Admin Trade Name Freq PRN Reason Stop Dose Admin Lactated Ringer's 1,000 mls @ 15 mls/hr 12/27/24 08:30 12/27/24 08:30 IV 15 mls/hr .Q48H LINDSAY Administration PFSH Medical History Post-menopausal Non-smoker Migraine headache Abnormal Pap smear of cervix Home Medications ?Medication ?Instructions ?Recorded ?Last Taken ?Type spironolactone 50 mg tablet 50 mg PO DAILY skin 09/14/22 12/25/24 History luppitfmqv-gefkueooahbkf-ojoijswy 1 cap PO Q8H PRN pain #20 caps 10/12/23 Unknown Rx 50 mg-300 mg-40 mg capsule (Fioricet) calcium carbonate 200 mg PO .qd 10/12/23 12/25/24 History multivitamin 1 tab PO DAILY 10/12/23 12/25/24 History Allergy/AdvReac Type Severity Reaction Status Date / Time No Known Allergies Allergy Verified 12/27/24 08:42 Family History Mother Breast cancer, Onset Age: 41 Diabetes Aunt Breast cancer, Onset Age: 40 Surgical History H/O breast biopsy [place] teeth extracted Social History number of children: 2 Smoking Status: Never smoker alcohol intake: never substance use type: does not use caffeine: No what type of physical activity do you participate in: walking frequency: daily seatbelt use: always do you feel safe at home: Yes 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
--- NOTE | 2024-12-27 10:27 | OP.COLON_ITS ---
Patient Name: Estela Moya Procedure Date: 12/27/2024 9:54 AM Date of : 1975 Age: 49 Procedure: Colonoscopy Indications: Screening for colorectal malignant neoplasm Providers: Duyen Richardson MD Referring MD: Lincoln Torres Md Medicines: Monitored Anesthesia Care Patient Profile: This is a 49 year old female. Last Colonoscopy: none. The patient's first colonoscopy is today. Complications: No immediate complications. Procedure: Pre-Anesthesia Assessment: - Prior to the procedure, a History and Physical was performed, and patient medications and allergies were reviewed. The patient's tolerance of previous anesthesia was also reviewed. The risks and benefits of the procedure and the sedation options and risks were discussed with the patient. All questions were answered, and informed consent was obtained. Prior Anticoagulants: The patient has taken no anticoagulant or antiplatelet agents. ASA Grade Assessment: Per anesthesia. After reviewing the risks and benefits, the patient was deemed in satisfactory condition to undergo the procedure. After I obtained informed consent, the scope was passed under direct vision. Throughout the procedure, the patient's blood pressure, pulse, and oxygen saturations were monitored continuously. The pediatric colonoscope was introduced through the anus and advanced to the cecum, identified by the appendiceal orifice, ileocecal valve and palpation. The colonoscopy was performed without difficulty. The patient tolerated the procedure well. The quality of the bowel preparation was good. Scope In: 10:04:56 AM Scope Withdrawal Time 0 hours 7 minutes 2 seconds Scope Out: 10:21:22 AM Total Procedure Duration Time 0 hours 16 minutes 26 seconds Findings: The perianal and digital rectal examinations were normal. The entire examined colon appeared normal on direct and retroflexion views. Impression: - The entire examined colon is normal on direct and retroflexion views. - No specimens collected. Recommendation: - Discharge patient to home. - Resume previous diet. - Continue present medications. - Repeat colonoscopy in 10 years for screening purposes. Procedure Code(s): --- Professional --- G0121, PT, Colorectal cancer screening; colonoscopy on individual not meeting criteria for high risk Diagnosis Code(s): --- Professional --- Z12.11, Encounter for screening for malignant neoplasm of colon CPT copyright 2021 [employer]. All rights reserved. The codes documented in this report are preliminary and upon carbon sequestration plant engineer review may be revised to meet current compliance requirements. MD Duyen Kumar MD 12/27/2024 10:26:39 AM This report has been signed electronically. Number of Addenda: 0 Note Initiated On: 12/27/2024 9:54 AM
--- NOTE | 2024-12-27 10:27 | OP.PROVAT_ITS ---
12/27/2024 Lincoln Torres Md Re : Colonoscopy procedure for Estela Moya Dear Brian This procedure was performed on Friday, December 27, 2024. My impressions and recommendations are as follows: Impressions : - The entire examined colon is normal on direct and retroflexion views. - No specimens collected. Recommendations : - Discharge patient to home. - Resume previous diet. - Continue present medications. - Repeat colonoscopy in 10 years for screening purposes. My findings are described in the full procedure note, which is enclosed. If I can be of further assistance, please feel free to contact me at Doctor phone number(s): , Work: . Sincerely, MD Duyen Kumar MD 12/27/2024 10:26:39 AM This report has been signed electronically.
--- NOTE | 2024-12-27 10:30 | PCM.POST.ANE ---
Anesthesia: Postop Eval I Current Vital Signs Temperature: 97.3 F Pulse Rate: 71 Blood Pressure: 79/44 Respiratory Rate: 16 Pulse Ox: 98 Oxygen Delivery Method: Room Air Assessment Airway patent: Yes Spontaneous unlabored respirations: Yes Mental status: Asleep nausea: No Vomiting: No Anesthesia Complication: No Fluid Hydration Crystalloid volume administer (ml): 800 Total IV fluid infused: 800 Progress Note Anesthesia document: Postop Eval 1 completed: Yes
--- NOTE | 2024-12-27 12:29 | PCM.POSTANE2 ---
Anesthesia Postop Eval I Sum Postop Eval Completion status Anesthesia document: Postop Eval 1 completed: Yes Anesthesia Postop Eval I Summary Anesthesia Postop Eval I Summary: Anesthesia Postop Eval I: Assessment Summary Airway patent Yes 12/27/24 10:31 [email or web address] Spontaneous unlabored Yes 12/27/24 10:31 [email or web address] respirations Mental status Asleep 12/27/24 10:31 [email or web address] nausea No 12/27/24 10:31 [email or web address] Vomiting No 12/27/24 10:31 [email or web address] Anesthesia Postop Eval I: Fluid Summary Crystalloid volume administer 800 12/27/24 10:31 [email or web address] (ml) Colloids volume administered ( ml) Blood Product volume administered (ml) Total IV fluid infused 800 12/27/24 10:31 [email or web address] Anesthesia Postop Eval I: Summary Notes Anesthesia Complication No 12/27/24 10:31 [email or web address] Anesthesia Complication Comment: Post-operative progress note Anesthesia: Postop Eval II Evaluation Mental status: Awake and Calm Pain Level: 1 nausea: No Vomiting: No Complications Anesthesia Complication: No
== END 2024-12-27 11:14 | disposition home or self-care (01) ==
LOC: EN 08:19 → AC 08:20
PROVIDERS: PCP Family Medicine; Referring Provider Family Medicine; Visit Provider Surgery
PROC: 0DJD8ZZ Inspection of Lower Intestinal Tract, Via Natural or Artificial Opening Endoscopic (ICD-10-PCS; CPT 45378; principal; 2024-12-27 09:40)
DX: Z12.11 Encounter for screening for malignant neoplasm of colon (principal)
CPT/HCPCS: 45378; J2405